=== PATIENT | male | born 1970 | race Hispanic/Latino ===

== ENCOUNTER 2019-05-23 20:13 | Emergency (ER) | payer MEDICARE ==
[2019-05-23 21:27] LABS: BASOPHILS % (AUTO) 0.6 % (0.0-5.0); EOSINOPHILS % (AUTO) 0.9 % (0.0-8.0); HEMATOCRIT 41.8 % (42-54); LYMPHOCYTES % (AUTO) 28.9 % (21.0-51.0); MEAN CORPUSCULAR HEMOGLOBIN 27.9 pg (27.0-33.0); MEAN CORPUSCULAR HGB CONC 32.8 g/dL (32.0-36.0); MEAN CORPUSCULAR VOLUME 85.1 fL (79-99); MONOCYTES % (AUTO) 7.6 % (3.0-13.0); NEUTROPHILS % (AUTO) 61.7 % (40.0-77.0); PLATELET COUNT (AUTO) 351 K/uL (130-400); RED BLOOD CELL COUNT(AUTO) 4.91 MIL/uL (4.50-6.20); RED CELL DISTRIBUTION WIDTH 13.4 % (11.0-15.5); WHITE BLOOD COUNT (AUTO) 6.9 K/uL (4.8-10.8)
[2019-05-23 21:38] LABS: CREATININE 1.1 mg/dL (0.5-1.5); POTASSIUM 4.6 mmol/L (3.5-5.1)
[2019-05-23 21:43] LABS: ALBUMIN 4.3 g/dL (3.5-5.0); BILIRUBIN,TOTAL 0.3 mg/dL (0.2-1.0); TOTAL PROTEIN, SERUM 8.3 g/dL (6.0-8.3)
[2019-05-23] MEDS ORDERED: LABETALOL 20 MG/4 ML DISP.SYRIN IV ONE (22:16)
[2019-05-23] MEDS ORDERED: HYDRALAZINE HCL 20 MG/ML VIAL ONE (22:58)
== END 2019-05-24 01:16 | disposition home or self-care (01) ==
LOC: EDH 20:13
DX: H53.2 Diplopia (principal); R03.0 Elevated blood-pressure reading, without diagnosis of hypertension; E11.9 Type 2 diabetes mellitus without complications; E78.00 Pure hypercholesterolemia, unspecified; I10 Essential (primary) hypertension
CPT/HCPCS: 36415; 70450; 70551; 80053; 84484; 85025; 93005; 96365; 96366; 96375; 99285; J0360

== ENCOUNTER 2020-09-14 14:51 | Observation (INO) | payer MEDICARE ==
[~2020-09-14] VITALS: Ht 165.1 cm; Wt 76.8 kg
[2020-09-14 14:54] VITALS: BP 214/104
[2020-09-14 15:58] VITALS: BP 195/78
[2020-09-14 17:01] VITALS: BP 211/86
[2020-09-14 17:43] LABS: BASOPHILS % (AUTO) 0.5 % (0.0-5.0); HEMATOCRIT 38.9 % (42-54); LYMPHOCYTES % (AUTO) 10.3 % (21.0-51.0); MEAN CORPUSCULAR HEMOGLOBIN 24.5 pg (27.0-33.0); MEAN CORPUSCULAR HGB CONC 31.6 g/dL (32.0-36.0); MEAN CORPUSCULAR VOLUME 77.3 fL (79-99); MONOCYTES % (AUTO) 2.9 % (3.0-13.0); NEUTROPHILS % (AUTO) 85.7 % (40.0-77.0); PLATELET COUNT (AUTO) 405 K/uL (130-400); RED BLOOD CELL COUNT(AUTO) 5.03 MIL/uL (4.50-6.20); RED CELL DISTRIBUTION WIDTH 17.2 % (11.0-15.5); WHITE BLOOD COUNT (AUTO) 10.2 K/uL (4.8-10.8)
[2020-09-14 18:02] LABS: INR 1.05 (0.85-1.15); PROTHROMBIN TIME 11.4 SEC (9.6-11.6)
[2020-09-14 18:04] LABS: PARTIAL THROMBOPLASTIN TIME 22.5 SEC (26.3-35.5)
[2020-09-14 18:09] LABS: CARBON DIOXIDE 26 mmol/L (21-32); CHLORIDE 101 mmol/L (101-111); GLOMERULAR FILTR. RATE CALC 85 mL/min (>60); GLUCOSE,RANDOM 225 mg/dL (70-105); POTASSIUM 3.5 mmol/L (3.5-5.1); SODIUM SERUM 138 mmol/L (136-145); UREA NITROGEN, BLOOD 13 mg/dL (7-18)
[2020-09-14 18:15] LABS: B-TYPE NATRIURETIC PEPTIDE 66 pg/mL (0-100)
[2020-09-14 18:22] LABS: ALANINE AMINOTRANSFERASE 21 U/L (12-78); ASPARTATE AMINOTRANSFERASE 15 U/L (10-37); BILIRUBIN,TOTAL 0.4 mg/dL (0.2-1.0); CREATINE KINASE, TOTAL 39 U/L (21-232); MYOGLOBIN 21 ng/mL (10-92); TOTAL PROTEIN, SERUM 8.5 g/dL (6.0-8.3); TROPONIN I < 0.04 ng/mL (0.00-0.06)
[2020-09-14 18:29] VITALS: BP 182/89
[2020-09-14] MEDS ORDERED: ONDANSETRON 4MG INJ IVP ONE (18:30)
[2020-09-14 19:35] VITALS: BP 168/74
[2020-09-14] MEDS ORDERED: ONDANSETRON 4MG INJ ONE (19:56)
[2020-09-14] MEDS ORDERED: PROCHLORPERAZINE 10MG/2ML INJ ONE (19:56)
[2020-09-14] MEDS ORDERED: 0.9%NACL 1000ML 1,000 ML IV SCH (20:30)
[2020-09-14] MEDS ORDERED: LACTATED RINGERS 1000ML 1,000 ML IV ONE (21:00)
[2020-09-14] MEDS ORDERED: 0.9%NACL 1000ML 1,000 ML IV ONE (21:00)
[2020-09-14 21:57] LABS: APPEARANCE,URINE CLOUDY (CLEAR); BILIRUBIN,URINE NEGATIVE (NEGATIVE); COLOR,URINE YELLOW (YELLOW); GLUCOSE, URINE (UA) >=1000 mg/dL (NEGATIVE); KETONES,URINE NEGATIVE (NEGATIVE); LEUKOCYTE ESTERASE ,URINE NEGATIVE (NEGATIVE); NITRATE,URINE NEGATIVE (NEGATIVE); OCCULT BLOOD,URINE NEGATIVE (NEGATIVE); PROTEIN,URINE 30 mg/dL (NEGATIVE)
[2020-09-14] MEDS ORDERED: MORPHINE 2 MG SYG IV PRN (22:00)
[2020-09-14] MEDS: CEFTRIAXONE 1G VIAL IV SCH (22:00)
[2020-09-14] MEDS: 0.9%NACL 1000ML 1,000 ML IV SCH ×2 (22:00→22:40)
[2020-09-14] MEDS ORDERED: PROMETHAZINE HCL 25 MG/ML 1ML AMPULE IM PRN (22:00)
[2020-09-14] MEDS: DICYCLOMINE 20MG (10MG/ML) AMP IM SCH (22:00)
[2020-09-14 22:12] LABS: RBC,URINE 0-1 /HPF (0-1); SQUAMOUS EPITHELIAL CELL,UR Rare /HPF (0-2); WBC,URINE 0-1 /HPF (0-1)
[2020-09-14 22:13] LABS: AMORPHOUS SEDIMENT,UR Few /LPF (None Seen); BACTERIA,URINE Moderate /HPF (None Seen)
[2020-09-14 22:42] LABS: THYROID STIMULATING HORMONE 0.43 uIU/mL (0.36-3.74)
[2020-09-14] MEDS ORDERED: 0.9%NACL 50ML 50 ML IV ONE (22:50)
[2020-09-14 23:00] VITALS: BP_SYST 165
[2020-09-15] VITALS (8 sets, daily range): BP systolic 122–162; BP diastolic 7–88
[2020-09-15] MEDS ORDERED: ONDANSETRON 4MG INJ IVP PRN (02:00)
[2020-09-15] MEDS: 0.9%NACL 1000ML 1,000 ML IV SCH (04:40)
[2020-09-15 06:24] LABS: BASOPHILS % (AUTO) 0.2 % (0.0-5.0); HEMATOCRIT 35.4 % (42-54); LYMPHOCYTES % (AUTO) 7.6 % (21.0-51.0); MEAN CORPUSCULAR HEMOGLOBIN 24.2 pg (27.0-33.0); MEAN CORPUSCULAR HGB CONC 31.6 g/dL (32.0-36.0); MEAN CORPUSCULAR VOLUME 76.5 fL (79-99); MONOCYTES % (AUTO) 3.3 % (3.0-13.0); NEUTROPHILS % (AUTO) 88.4 % (40.0-77.0); PLATELET COUNT (AUTO) 386 K/uL (130-400); RED BLOOD CELL COUNT(AUTO) 4.63 MIL/uL (4.50-6.20); RED CELL DISTRIBUTION WIDTH 17.3 % (11.0-15.5); WHITE BLOOD COUNT (AUTO) 13.1 K/uL (4.8-10.8)
[2020-09-15 06:43] LABS: CREATININE 1.1 mg/dL (0.5-1.5); POTASSIUM 3.5 mmol/L (3.5-5.1)
[2020-09-15] MEDS: FAMOTIDINE 20MG VIAL IV SCH ×2 (11:59→21:00)
[2020-09-15] MEDS ORDERED: HYDROCHLOROTHIAZIDE 25 MG TABLET PO ONE (19:30)
[2020-09-15] MEDS ORDERED: LISINOPRIL 10 MG TABLET PO SCH (19:30)
[2020-09-15] MEDS: ZOSYN 3.375GM +NS 50ML IV SCH (20:49)
[2020-09-15] MEDS: 0.9%NACL 50ML 50 ML IV SCH (20:49)
[2020-09-15 20:55] LABS: AMPHET/METH SCREEN,URINE NEGATIVE (NEGATIVE); BARBITURATE SCREEN, URINE NEGATIVE (NEGATIVE); BENZODIAZEPINES SCREEN,URINE NEGATIVE (NEGATIVE); CANNABINOID SCREEN,URINE NEGATIVE (NEGATIVE); COCAINE SCREEN,URINE NEGATIVE (NEGATIVE); OPIATE SCREEN,URINE NEGATIVE (NEGATIVE); PHENCYCLIDINE SCREEN,URINE NEGATIVE (NEGATIVE)
[2020-09-15] MEDS ORDERED: FENOFIBRATE NANOCRYSTALLIZED 145 MG TAB PO SCH (21:00)
[2020-09-15] MEDS ORDERED: ZOSYN 3.375GM+NS 50ML 50 ML IV SCH (21:00)
[2020-09-15] MEDS ORDERED: ATORVASTATIN 20 MG TABLET PO SCH (21:00)
[2020-09-15] MEDS ORDERED: INSULIN GLARGINE 100 UNITS/ML 10 ML VIAL SQ SCH (21:00)
[2020-09-15 21:49] LABS: AMYLASE 38 U/L (25-115); LIPASE 151 U/L (114-286)
[2020-09-15 21:51] LABS: CRP QUANTITATIVE < 2.00 mg/L (0.00-9.0)
[2020-09-15] MEDS: DICYCLOMINE 20MG (10MG/ML) AMP IM SCH (22:00)
[2020-09-15] MEDS: CEFTRIAXONE 1G VIAL IV SCH (22:00)
[2020-09-15] MEDS: INSULIN HUMULIN R 100 UNIT/ML 3ML SQ SCH (22:06)
[2020-09-15] MEDS ORDERED: ASPI-1005 PO (22:28)
[2020-09-15] MEDS ORDERED: CLON0.2T PO (22:28)
[2020-09-15] MEDS ORDERED: GLIP10TA9 PO (22:28)
[2020-09-15] MEDS ORDERED: PRAV40TA3 PO (22:28)
[2020-09-15] MEDS ORDERED: LINA5TAB PO (22:28)
[2020-09-15] MEDS ORDERED: METF-446 PO (22:28)
[2020-09-15] MEDS ORDERED: FENO160 PO (22:28)
[2020-09-15] MEDS ORDERED: LISI40TA9 PO (22:28)
[2020-09-15] MEDS ORDERED: HALO0.5T PO (22:28)
[2020-09-16 00:58] VITALS: BP 151/85
[2020-09-16 01:15] VITALS: BP 159/86
[2020-09-16] MEDS: 0.9%NACL 1000ML 1,000 ML IV SCH ×2 (03:17→13:17)
[2020-09-16 03:43] VITALS: BP 159/95
[2020-09-16] MEDS: 0.9%NACL 50ML 50 ML IV SCH ×2 (04:58→13:50)
[2020-09-16] MEDS: ZOSYN 3.375GM +NS 50ML IV SCH ×2 (04:59→13:49)
[2020-09-16] MEDS: INSULIN HUMULIN R 100 UNIT/ML 3ML SQ SCH ×6 (05:45→17:24)
[2020-09-16 05:56] LABS: BASOPHILS % (AUTO) 0.7 % (0.0-5.0); EOSINOPHILS % (AUTO) 0.3 % (0.0-8.0); HEMATOCRIT 34.6 % (42-54); LYMPHOCYTES % (AUTO) 24.7 % (21.0-51.0); MEAN CORPUSCULAR HEMOGLOBIN 24.3 pg (27.0-33.0); MEAN CORPUSCULAR HGB CONC 31.2 g/dL (32.0-36.0); MEAN CORPUSCULAR VOLUME 77.9 fL (79-99); MONOCYTES % (AUTO) 7.5 % (3.0-13.0); NEUTROPHILS % (AUTO) 66.3 % (40.0-77.0); PLATELET COUNT (AUTO) 374 K/uL (130-400); RED BLOOD CELL COUNT(AUTO) 4.44 MIL/uL (4.50-6.20); RED CELL DISTRIBUTION WIDTH 17.6 % (11.0-15.5); WHITE BLOOD COUNT (AUTO) 8.6 K/uL (4.8-10.8)
[2020-09-16] MEDS: DICYCLOMINE 20MG (10MG/ML) AMP IM SCH ×2 (06:00→14:00)
[2020-09-16] MEDS ORDERED: METOCLOPRAMIDE 10 MG/2 ML VIAL ONE (06:05)
[2020-09-16 06:12] LABS: ALBUMIN 3.6 g/dL (3.5-5.0); BILIRUBIN,TOTAL 0.3 mg/dL (0.2-1.0); CREATININE 1.1 mg/dL (0.5-1.5); POTASSIUM 3.4 mmol/L (3.5-5.1); TOTAL PROTEIN, SERUM 7.7 g/dL (6.0-8.3)
[2020-09-16 06:15] LABS: HEMOGLOBIN A1C 8.6 % (4.0-6.0)
[2020-09-16] MEDS: METOCLOPRAMIDE 10 MG/2 ML VIAL IVP SCH ×3 (06:50→17:13)
[2020-09-16 07:05] VITALS: BP 199/97
[2020-09-16] MEDS ORDERED: LEVO500T89 PO (07:05)
[2020-09-16] MEDS ORDERED: METR-172 PO (07:05)
[2020-09-16 07:24] LABS: ERYTHROCYTE SEDIMENTATION RATE 27 MM/HR (0-15)
[2020-09-16] MEDS: FAMOTIDINE 20MG VIAL IV SCH (08:09)
[2020-09-16] MEDS ORDERED: LISINOPRIL 10 MG TABLET PO SCH (09:00)
[2020-09-16] MEDS ORDERED: HYDROCHLOROTHIAZIDE 25 MG TABLET PO SCH (09:00)
[2020-09-16 11:18] VITALS: BP 216/88
[2020-09-16] MEDS ORDERED: HYDRALAZINE 20MG/ML VIAL IV SCH (11:28)
[2020-09-16] MEDS ORDERED: HYDRALAZINE 20MG/ML VIAL IV PRN (11:30)
[2020-09-16] MEDS ORDERED: HYDRALAZINE 20MG/ML VIAL ONE (11:36)
[2020-09-16 15:46] VITALS: BP 167/80
== END 2020-09-16 18:00 | disposition home or self-care (01) ==
LOC: EDH 14:51 → EDHIP 21:49 → 3AH 09-16 00:28
PROVIDERS: ADMIT Hospitalist; ATTEND Hospitalist
DX: K52.9 Noninfective gastroenteritis and colitis, unspecified (principal); E86.0 Dehydration; I25.10 Atherosclerotic heart disease of native coronary artery without angina pectoris; E78.00 Pure hypercholesterolemia, unspecified; R42 Dizziness and giddiness; E78.5 Hyperlipidemia, unspecified; I10 Essential (primary) hypertension; E11.65 Type 2 diabetes mellitus with hyperglycemia; Z79.4 Long term (current) use of insulin; Z79.01 Long term (current) use of anticoagulants; Z79.899 Other long term (current) drug therapy
CPT/HCPCS: 36415 ×3; 71045; 80048; 80053 ×2; 80061 ×2; 80305; 81001; 82150; 82550; 82948 ×6; 83036; 83605 ×2; 83690; 83874; 83880; 84145; 84443; 84484 ×2; 85025 ×3; 85610; 85651; 85730; 86140; 87077; 87088; 87186; 93005; 96361 ×2; 96365; 96366; 96372; 96375 ×3; 96376; 99285; G0378 ×43; J0360; J0500 ×2; J0696 ×2; J0780; J1815 ×3; J2405 ×2; J2543 ×2; J2550; J2765 ×4; J3490 ×3; J7030

== ENCOUNTER 2022-12-20 12:03 | Emergency (ER) | payer MEDICARE ==
[~2022-12-20] VITALS: Ht 165.1 cm; Wt 73.9 kg
[~2022-12-20 12:03] MED LIST: ASPI-1005 PO; CLON0.2T PO; FENO160 PO; GLIP10TA9 PO; HALO0.5T PO; LEVO-70 PO; LINA5TAB PO; LISI40TA9 PO; METF-446 PO; METR-172 PO; PRAV40TA3 PO
[2022-12-20 13:34] LABS: BASOPHILS # (AUTO) 0.06 K/uL (0.00-0.20); BASOPHILS % (AUTO) 0.9 % (0.0-5.0); EOSINOPHILS # (AUTO) 0.01 K/uL (0.00-0.70); EOSINOPHILS % (AUTO) 0.2 % (0.0-8.0); HEMATOCRIT 46.8 % (42-54); IMMATURE GRANULOCYTE ABSOLUTE 0.04 K/uL (0-1); LYMPHOCYTES # (AUTO) 1.3 K/uL (1.0-4.8); LYMPHOCYTES % (AUTO) 19.8 % (21.0-51.0); MEAN CORPUSCULAR HEMOGLOBIN 28.4 pg (27.0-33.0); MEAN CORPUSCULAR HGB CONC 32.7 g/dL (32.0-36.0); MEAN CORPUSCULAR VOLUME 86.8 fL (79-99); MONOCYTES # (AUTO) 0.4 K/uL (0.1-1.0); MONOCYTES % (AUTO) 6.3 % (3.0-13.0); NEUTROPHILS # (AUTO) 4.6 K/uL (1.8-7.7); NEUTROPHILS % (AUTO) 72.2 % (40.0-77.0); PLATELET COUNT (AUTO) 375 K/uL (130-400); RED BLOOD CELL COUNT(AUTO) 5.39 MIL/uL (4.50-6.20); RED CELL DISTRIBUTION WIDTH 14.5 % (11.0-15.5); WHITE BLOOD COUNT (AUTO) 6.4 K/uL (4.8-10.8)
[2022-12-20 13:42] LABS: AMPHET/METH SCREEN,URINE NEGATIVE (NEGATIVE); BARBITURATE SCREEN, URINE NEGATIVE (NEGATIVE); BENZODIAZEPINES SCREEN,URINE NEGATIVE (NEGATIVE); CANNABINOID SCREEN,URINE NEGATIVE (NEGATIVE); COCAINE SCREEN,URINE NEGATIVE (NEGATIVE); OPIATE SCREEN,URINE NEGATIVE (NEGATIVE); PHENCYCLIDINE SCREEN,URINE NEGATIVE (NEGATIVE)
[2022-12-20 13:48] LABS: ALBUMIN 4.5 g/dL (3.5-5.0); BILIRUBIN,TOTAL 0.6 mg/dL (0.2-1.0); CREATININE 1.2 mg/dL (0.5-1.5); TOTAL PROTEIN, SERUM 8.5 g/dL (6.0-8.3)
[2022-12-20 13:56] LABS: ADD UA MICROSCOPIC YES; APPEARANCE,URINE CLEAR (CLEAR); BILIRUBIN,URINE NEGATIVE (NEGATIVE); COLOR,URINE LIGHT-YELLOW (YELLOW); GLUCOSE, URINE (UA) >=1000 mg/dL (NEGATIVE); KETONES,URINE NEGATIVE (NEGATIVE); LEUKOCYTE ESTERASE ,URINE NEGATIVE Leu/uL (NEGATIVE); NITRATE,URINE NEGATIVE (NEGATIVE); OCCULT BLOOD,URINE NEGATIVE (NEGATIVE); PH,URINE 5.5 (5.0-8.0); PROTEIN,URINE NEGATIVE (NEGATIVE); UROBILINOGEN,URINE 0.2 mg/dL (0.2-1.0)
[2022-12-20 13:58] LABS: MUCUS,URINE RARE LPF (None Seen); RBC,URINE 0-1 /HPF (0-1); SQUAMOUS EPITHELIAL CELL,UR RARE /HPF (0-2); WBC,URINE 0-1 /HPF (0-1)
[2022-12-20] MEDS ORDERED: HYD50 PO (16:39)
[2022-12-20 16:45] VITALS: BP 131/84; PULSE 80; RESP 16; O2SAT 97
== END 2022-12-20 16:51 | disposition home or self-care (01) ==
LOC: EDH 12:03
DX: F41.9 Anxiety disorder, unspecified (principal); R00.2 Palpitations; E11.9 Type 2 diabetes mellitus without complications; E78.00 Pure hypercholesterolemia, unspecified; I10 Essential (primary) hypertension
CPT/HCPCS: 36415; 71045; 80053; 80305; 81001; 84484; 85025; 93005